=== PATIENT | female | born 1955 | race Caucasian/White ===

== ENCOUNTER → 2016-12-25 | Outpatient (CLI) | payer OTHER ==
[2013-12-23 07:59] VITALS: BP 97/63
[~2016-12-25] MED LIST: EFFEXOR75 MG; HYDROCHLOROTH12.5 M1 PO; REQUIP5 MG PO
== END ==
LOC: LAB 07:56
DX: Z00.00 Encounter for general adult medical examination without abnormal findings (principal)

== ENCOUNTER → 2017-03-24 | Outpatient (CLI) | payer BC ==
[2013-12-23 07:59] VITALS: BP 97/63
== END ==
LOC: MAMMO 10:33
DX: Z12.31 Encounter for screening mammogram for malignant neoplasm of breast (principal)
CPT/HCPCS: G0202

== ENCOUNTER → 2018-01-18 | Outpatient (CLI) | payer BC ==
[2013-12-23 07:59] VITALS: BP 97/63
[2018-01-18 09:44] LABS: BASO # 0.1 (0.02-0.10); EOS # 0.2 (0.04-0.40); EOS % 3.2 % (1.0-5.0); HEMATOCRIT 42.5 % (37.0-47.0); LYMPH# 1.4 (1.50-4.00); MEAN CELL VOLUME 89 fl (78-100); MEAN CORPUSCULAR HEMOGLOBIN 29 pg (27-31); MEAN CORPUSCULAR HGB CONC 33 g/dL (33-37); MEAN PLATELET VOLUME 10.7 fl (7.4-10.4); MONO # 0.6 (0.20-0.80); NEU # 2.9 (1.40-6.50); PLATELET COUNT 229 K/mm3 (130-400); RED BLOOD COUNT 4.76 M/mm3 (4.10-5.30); RED CELL DISTRIBUTION WIDTH 13.7 % (11.5-14.5); WHITE BLOOD COUNT 5.1 K/mm3 (4.8-10.8)
[2018-01-18 09:48] LABS: ALBUMIN 4.1 g/dL (3.5-5.0); BUN/CREATININE RATIO 31.8 (6.0-26.0); CALCIUM 9.1 mg/dL (8.4-10.2); TOTAL BILIRUBIN 0.4 mg/dL (0.2-1.3); TOTAL PROTEIN 6.9 g/dL (6.3-8.2)
[2018-01-18 11:12] LABS: ERYTHROCYTE SEDIMENTATION RATE 2 mm/hr (0-30)
== END ==
LOC: LAB 09:17
PROVIDERS: Internal Medicine
DX: Z00.00 Encounter for general adult medical examination without abnormal findings (principal); Z12.11 Encounter for screening for malignant neoplasm of colon

== ENCOUNTER → 2018-03-25 | Outpatient (CLI) | payer BC ==
[2013-12-23 07:59] VITALS: BP 97/63
== END ==
LOC: MAMMO 08:28
DX: Z13.820 Encounter for screening for osteoporosis (principal); M85.88 Other specified disorders of bone density and structure, other site

== ENCOUNTER → 2018-12-16 | Outpatient (REF) ==
[2013-12-23 07:59] VITALS: BP 97/63
== END ==
LOC: LAB 17:48 → EDSTATUS 18:46
DX: Z01.89 Encounter for other specified special examinations (principal)

== ENCOUNTER → 2019-03-29 | Outpatient (CLI) | payer BC ==
[2013-12-23 07:59] VITALS: BP 97/63
[2019-03-29 08:28] LABS: BASO # 0.1 (0.02-0.10); EOS # 0.2 (0.04-0.40); EOS % 3.2 % (1.0-5.0); HEMATOCRIT 43.5 % (37.0-47.0); HEMOGLOBIN 14.3 g/dL (12.5-16.0); LYMPH# 1.3 (1.50-4.00); MEAN CELL VOLUME 89 fl (78-100); MEAN CORPUSCULAR HEMOGLOBIN 29 pg (27-31); MEAN CORPUSCULAR HGB CONC 33 g/dL (33-37); MEAN PLATELET VOLUME 10.2 fl (7.4-10.4); MONO # 0.5 (0.20-0.80); NEU # 2.7 (1.40-6.50); PLATELET COUNT 238 K/mm3 (130-400); RED BLOOD COUNT 4.87 M/mm3 (4.10-5.30); RED CELL DISTRIBUTION WIDTH 13.2 % (11.5-14.5); WHITE BLOOD COUNT 4.7 K/mm3 (4.8-10.8)
[2019-03-29 08:32] LABS: POTASSIUM 4.1 mmol/L (3.5-5.1)
[2019-03-29 08:33] LABS: ALBUMIN 4.1 g/dL (3.4-4.8)
[2019-03-29 08:34] LABS: CALCIUM 9.6 mg/dL (8.3-10.5)
[2019-03-29 08:35] LABS: TOTAL PROTEIN 6.7 g/dL (6.2-8.1)
[2019-03-29 08:37] LABS: TOTAL BILIRUBIN 0.6 mg/dL (0.2-1.2)
[2019-03-29 09:37] LABS: ERYTHROCYTE SEDIMENTATION RATE 2 mm/hr (0-30)
== END ==
LOC: MAMMO 08:00
PROVIDERS: Internal Medicine
DX: Z00.00 Encounter for general adult medical examination without abnormal findings (principal); Z12.31 Encounter for screening mammogram for malignant neoplasm of breast; Z12.11 Encounter for screening for malignant neoplasm of colon

== ENCOUNTER → 2020-02-18 | Outpatient (CLI) | payer BC ==
[2013-12-23 07:59] VITALS: BP 97/63
== END ==
LOC: RAD 11:16
DX: M19.042 Primary osteoarthritis, left hand (principal); M19.041 Primary osteoarthritis, right hand

== ENCOUNTER → 2020-04-12 | Outpatient (CLI) | payer BC ==
[2013-12-23 07:59] VITALS: BP 97/63
== END ==
LOC: LAB 09:48 → MAMMO 09:48
DX: Z00.00 Encounter for general adult medical examination without abnormal findings (principal); Z12.11 Encounter for screening for malignant neoplasm of colon; Z12.31 Encounter for screening mammogram for malignant neoplasm of breast; M85.80 Other specified disorders of bone density and structure, unspecified site

== ENCOUNTER → 2020-10-30 | Outpatient (CLI) | payer BC ==
[2013-12-23 07:59] VITALS: BP 97/63
== END ==
LOC: CARDIO 13:49
DX: I49.9 Cardiac arrhythmia, unspecified (principal)

== ENCOUNTER → 2020-11-01 | Outpatient (CLI) | payer BC ==
[2013-12-23 07:59] VITALS: BP 97/63
[2020-11-01 08:34] LABS: BASO # 0.07 (0.02-0.10); EOS # 0.17 (0.04-0.40); EOS % 3.2 % (1.0-5.0); HEMATOCRIT 45.3 % (37.0-47.0); HEMOGLOBIN 14.8 g/dL (12.5-16.0); LYMPH# 1.16 (1.50-4.00); MEAN CELL VOLUME 90 fl (78-100); MEAN CORPUSCULAR HEMOGLOBIN 30 pg (27-31); MEAN CORPUSCULAR HGB CONC 33 g/dL (33-37); MEAN PLATELET VOLUME 10.1 fl (7.4-10.4); MONO # 0.52 (0.20-0.80); NEU # 3.34 (1.40-6.50); PLATELET COUNT 254 K/mm3 (130-400); RED BLOOD COUNT 5.02 M/mm3 (4.10-5.30); RED CELL DISTRIBUTION WIDTH 12.9 % (11.5-14.5); WHITE BLOOD COUNT 5.3 K/mm3 (4.8-10.8)
[2020-11-01 08:41] LABS: ALBUMIN 4.2 g/dL (3.4-4.8)
[2020-11-01 08:42] LABS: POTASSIUM 4.5 mmol/L (3.5-5.1)
[2020-11-01 08:43] LABS: CALCIUM 9.7 mg/dL (8.3-10.5)
[2020-11-01 08:44] LABS: TOTAL PROTEIN 6.7 g/dL (6.2-8.1)
[2020-11-01 08:46] LABS: TOTAL BILIRUBIN 0.4 mg/dL (0.2-1.2)
[2020-11-01 08:50] LABS: MAGNESIUM 2.01 mg/dL (1.60-2.60)
== END ==
LOC: LAB 08:21
PROVIDERS: Internal Medicine
DX: R00.8 Other abnormalities of heart beat (principal)

== ENCOUNTER → 2020-11-14 | Outpatient (CLI) | payer BC ==
[2013-12-23 07:59] VITALS: BP 97/63
== END ==
LOC: AMSURD 08:33
DX: R00.8 Other abnormalities of heart beat (principal)

== ENCOUNTER → 2020-12-24 | Outpatient (CLI) | payer BC ==
[2020-12-25 02:50] LABS: URINE APPEARANCE HAZY; URINE BILIRUBIN NEGATIVE (NEGATIVE); URINE BLOOD 250 ery/uL (NEGATIVE); URINE COLOR YELLOW; URINE GLUCOSE NEGATIVE (NEGATIVE); URINE KETONE NEGATIVE (NEGATIVE); URINE LEUKOCYTE ESTERASE 1+ (NEGATIVE); URINE NITRATE NEGATIVE (NEGATIVE); URINE PROTEIN(semi-quant) 1+ mg/dL (NEGATIVE); URINE UROBILINOGEN NORMAL (NORMAL); URINE WBC >50 /hpf (0-3)
[2020-12-25 02:51] LABS: URINE MUCUS PRESENT (NOT PRESENT)
== END ==
LOC: LAB 19:05
PROVIDERS: Nurse Practitioner
DX: N30.01 Acute cystitis with hematuria (principal)

== ENCOUNTER → 2021-03-07 | Outpatient (CLI) | payer OTHER ==
[2021-03-07 09:14] LABS: BASO # 0.06 (0.02-0.10); EOS # 0.16 (0.04-0.40); EOS % 3.3 % (1.0-5.0); HEMATOCRIT 46.3 % (37.0-47.0); HEMOGLOBIN 14.9 g/dL (12.5-16.0); LYMPH# 1.42 (1.50-4.00); MEAN CELL VOLUME 91 fl (78-100); MEAN CORPUSCULAR HEMOGLOBIN 29 pg (27-31); MEAN CORPUSCULAR HGB CONC 32 g/dL (33-37); MEAN PLATELET VOLUME 9.9 fl (7.4-10.4); MONO # 0.52 (0.20-0.80); NEU # 2.72 (1.40-6.50); PLATELET COUNT 252 K/mm3 (130-400); RED CELL DISTRIBUTION WIDTH 13.1 % (11.5-14.5); WHITE BLOOD COUNT 4.9 K/mm3 (4.8-10.8)
[2021-03-07 09:25] LABS: ALBUMIN 4.2 g/dL (3.4-4.8)
[2021-03-07 09:27] LABS: TOTAL PROTEIN 7.1 g/dL (6.2-8.1)
[2021-03-07 09:29] LABS: TOTAL BILIRUBIN 0.3 mg/dL (0.2-1.2)
[2021-03-07 10:37] LABS: ERYTHROCYTE SEDIMENTATION RATE 0 mm/hr (0-30)
== END ==
LOC: LAB 08:58
PROVIDERS: Internal Medicine
DX: Z00.00 Encounter for general adult medical examination without abnormal findings (principal)

== ENCOUNTER → 2022-04-30 | Outpatient (CLI) | payer OTHER ==
[2022-04-30 09:36] LABS: BASO # 0.06 K/mm3 (0.02-0.10); EOS # 0.18 K/mm3 (0.04-0.40); EOS % 3.4 % (1.0-5.0); LYMPH# 1.54 K/mm3 (1.50-4.00); MEAN CELL VOLUME 92 fl (78-100); MEAN CORPUSCULAR HEMOGLOBIN 30 pg (27-31); MEAN CORPUSCULAR HGB CONC 33 g/dL (33-37); MEAN PLATELET VOLUME 10.8 fl (7.4-10.4); MONO # 0.53 K/mm3 (0.20-0.80); NEU # 3.04 K/mm3 (1.40-6.50); PLATELET COUNT 259 K/mm3 (130-400); RED BLOOD COUNT 4.99 M/mm3 (4.10-5.30); WHITE BLOOD COUNT 5.4 K/mm3 (4.8-10.8)
[2022-04-30 09:41] LABS: ALBUMIN 4.3 g/dL (3.4-4.8); POTASSIUM 3.8 mmol/L (3.5-5.1)
[2022-04-30 09:42] LABS: CALCIUM 9.8 mg/dL (8.3-10.5)
[2022-04-30 09:46] LABS: TOTAL BILIRUBIN 0.4 mg/dL (0.2-1.2)
[2022-04-30 13:05] LABS: ERYTHROCYTE SEDIMENTATION RATE 2 mm/hr (0-30)
== END ==
LOC: MAMMO 08:11
PROVIDERS: Internal Medicine
DX: Z00.00 Encounter for general adult medical examination without abnormal findings (principal); Z12.31 Encounter for screening mammogram for malignant neoplasm of breast; Z13.29 Encounter for screening for other suspected endocrine disorder; Z23 Encounter for immunization

== ENCOUNTER → 2023-07-07 | Outpatient (CLI) | payer OTHER | LOC: MAMMO 15:25 | DX: Z12.31 Encounter for screening mammogram for malignant neoplasm of breast (principal); M85.852 Other specified disorders of bone density and structure, left thigh; M85.851 Other specified disorders of bone density and structure, right thigh ==

== ENCOUNTER → 2023-11-30 | Outpatient (CLI) | payer OTHER ==
[2023-11-30 09:46] LABS: ALBUMIN 4.4 g/dL (3.4-4.8)
[2023-11-30 09:47] LABS: CALCIUM 9.7 mg/dL (8.3-10.5)
[2023-11-30 09:48] LABS: TOTAL PROTEIN 6.6 g/dL (6.2-8.1)
[2023-11-30 09:50] LABS: TOTAL BILIRUBIN 0.3 mg/dL (0.2-1.2)
== END ==
LOC: LAB 09:25
PROVIDERS: Internal Medicine
DX: E78.2 Mixed hyperlipidemia (principal); R73.9 Hyperglycemia, unspecified

== ENCOUNTER → 2024-02-12 | Outpatient (CLI) | payer MEDICARE, BC ==
[2024-02-12 09:48] LABS: BASO # 0.05 K/mm3 (0.02-0.10); EOS # 0.18 K/mm3 (0.04-0.40); EOS % 4.2 % (1.0-5.0); HEMATOCRIT 43.4 % (37.0-47.0); HEMOGLOBIN 14.3 g/dL (12.5-16.0); LYMPH# 1.23 K/mm3 (1.50-4.00); MEAN CELL VOLUME 92 fl (78-100); MEAN CORPUSCULAR HEMOGLOBIN 30 pg (27-31); MEAN CORPUSCULAR HGB CONC 33 g/dL (33-37); MEAN PLATELET VOLUME 10.6 fl (7.4-10.4); MONO # 0.38 K/mm3 (0.20-0.80); NEU # 2.49 K/mm3 (1.40-6.50); PLATELET COUNT 188 K/mm3 (130-400); RED CELL DISTRIBUTION WIDTH 12.8 % (11.5-14.5); WHITE BLOOD COUNT 4.3 K/mm3 (4.8-10.8)
[2024-02-12 10:06] LABS: ALBUMIN 4.3 g/dL (3.4-4.8)
[2024-02-12 10:07] LABS: CALCIUM 9.7 mg/dL (8.3-10.5)
[2024-02-12 10:08] LABS: TOTAL PROTEIN 6.5 g/dL (6.2-8.1)
[2024-02-12 10:10] LABS: TOTAL BILIRUBIN 0.5 mg/dL (0.2-1.2)
[2024-02-12 10:15] LABS: MAGNESIUM 2.03 mg/dL (1.60-2.60)
== END ==
LOC: LAB 09:29
PROVIDERS: Internal Medicine
DX: Z00.00 Encounter for general adult medical examination without abnormal findings (principal)

== ENCOUNTER → 2024-08-19 | Outpatient (CLI) | payer MEDICARE, BC | LOC: MAMMO 07:56 | DX: Z12.31 Encounter for screening mammogram for malignant neoplasm of breast (principal) ==